=== PATIENT | male | born 1955 | race Caucasian/White ===

== ENCOUNTER 2016-04-12 01:29 | Inpatient (IN) | payer OTHER, MEDICARE ==
[~2016-04-12] VITALS: Ht 170.2 cm; Wt 128.5 kg
[~2016-04-12 01:29] MED LIST: BACT800T5 PO
[2016-04-12 01:40] VITALS: BP 125/74; PULSE 85; RESP 18; TEMP 97.7; O2SAT 98
[2016-04-12] MEDS ORDERED: NITROGLYCERIN 0.4 MG SL 25 TABS/BTL SL ONE (02:00)
[2016-04-12] MEDS ORDERED: ASPIRIN 81 MG CHEW TAB PO ONE (02:00)
[2016-04-12] MEDS ORDERED: SODIUM CHLORIDE 0.9% FLUSH 5 ML FLUSH IVF PRN ×4 (02:00→04:15)
[2016-04-12 02:04] LABS: AUTOMATED NEUTROPHIL # 5.6 TH/MM3 (1.8-7.7); BASOPHIL # 0.4 TH/MM3 (0-0.2); BASOPHIL % 3.9 % (0.0-2.0); EOSINOPHIL # 0.4 TH/MM3 (0-0.4); HEMATOCRIT 47.3 % (39.0-51.0); HEMO FLAGS DIFF FINAL; LYMPH % 23.9 % (9.0-44.0); LYMPHOCYTE # 2.2 TH/MM3 (1.0-4.8); MEAN CELL VOLUME 84.9 FL (80.0-100.0); MEAN CORPUSCULAR HEMOGLOBIN 28.4 PG (27.0-34.0); MEAN CORPUSCULAR HGB CONC 33.5 % (32.0-36.0); NEUT % 59.2 % (16.0-70.0); PLATELET COUNT 223 TH/MM3 (150-450); RED BLOOD COUNT 5.57 MIL/MM3 (4.50-5.90); RED CELL DISTRIBUTION WIDTH 12.6 % (11.6-17.2); WHITE BLOOD COUNT 9.4 TH/MM3 (4.0-11.0)
[2016-04-12 02:10] LABS: CHLORIDE 103 MEQ/L (98-107); POTASSIUM 4.3 MEQ/L (3.5-5.1); SODIUM (NA) 137 MEQ/L (136-145)
[2016-04-12 02:13] LABS: ANION GAP 9 MEQ/L (5-15); BICARBONATE 25.3 MEQ/L (21.0-32.0); BLOOD UREA NITROGEN 22 MG/DL (7-18); MAGNESIUM 2.1 MG/DL (1.5-2.5)
[2016-04-12 02:14] LABS: APTT (PATIENT) 24.7 SEC (24.3-30.1); PROTHROMBIN TIME - PATIENT 10.8 SEC (9.8-11.6)
[2016-04-12 02:16] LABS: GLOMERULAR FILTRATION RATE 69 ML/MIN (>89)
[2016-04-12 02:19] LABS: CREATINE KINASE 78 U/L (39-308)
--- NOTE | 2016-04-12 02:33 | PD ---
HPI Chief Complaint: Chest Pain Time Seen by Provider: 01:50 Travel History International Travel<30 days: No Contact w/Intl Traveler<30days: No Traveled to known affect area: No History of Present Illness HPI 61-year-old male presents to the emergency department for complaint of 45 minutes of the intra-sternal chest pain with shortness of breath. Pain is nonradiating. No neck jaw back shoulder arm or abdominal pain. Patient has chronically edematous lower extremity secondary to lymphedema left greater than right but also has history of DVT and PE in the past. Patient reports that he has a Sharath filter. Patient is on no blood thinning agents except an aspirin daily. Patient denies tobacco use. Patient states she's been having intermittent chest pain over the past 2 months. Patient states this episode occurred with minimal exertion while walking approximately 100 feet. Patient did not take aspirin prior to arrival to the emergency department. Patient did not take any nitroglycerin. Patient has history of hypertension and diabetes as well as lymphedema and DVT with previous PE. Patient does not complain of pleuritic pain. Symptoms are worsened by movement or taking a deep breath. Patient denies any recent febrile illness. No hemoptysis. Patient also reports that he thinks he had a stress test in [facility] proximally 2 months ago and thinks it may have been normal but does not know the details and has not been followed by a plastic welder. Patient reports his primary care provider Maria C romero but he does not know who the physician is at this location. Patient has multiple prescriptions that have been provided to him that he has not filled any of his prescriptions. [facility] Past Medical History Narrative Medical Diabetes hypertension DVT PE lymphedema cholecystectomy alcohol use Diabetes: Yes (NO MEDS) Patient Takes Glucophage: No Deep Vein Thrombosis: Yes Immunizations Current: Yes Past Surgical History Cholecystectomy: Yes Oral Surgery: Yes Social History Alcohol Use: Yes (VERY RARE) Tobacco Use: No Substance Use: No Allergies-Medications (Allergen,Severity, Reaction): Coded Allergies: No Known Allergies (Verified , 04/12/16) Reported Meds & Prescriptions Reported Meds & Active Scripts Active Narrative Medication has prescription but not filled, low dose aspirin Review of Systems Except as stated in HPI: all other systems reviewed are Neg General / Constitutional: No: Fever HENT: No: Congestion Cardiovascular: Positive: Chest Pain or Discomfort, No: Diaphoresis Respiratory: Positive: Shortness of Breath Gastrointestinal: No: Nausea, Vomiting, Abdominal Pain Genitourinary: No: Flank Pain Musculoskeletal: Positive: Edema, Pain Skin: No Rash Neurologic: No: Weakness Psychiatric: No: Anxiety Hematologic/Lymphatic: No: Lymph Node Enlargement Physical Exam Narrative GENERAL: Well-developed well-nourished obese male in no acute distress no respiratory distress. SKIN: Warm and dry. HEAD: Normocephalic. EYES: No scleral icterus. No injection or drainage. NECK: Supple, trachea midline. No JVD or lymphadenopathy. CARDIOVASCULAR: Regular rate and rhythm without murmurs, gallops, or rubs. RESPIRATORY: Breath sounds equal bilaterally. No accessory muscle use. GASTROINTESTINAL: Abdomen soft, non-tender, nondistended. MUSCULOSKELETAL: No cyanosis, bilateral lower extremity left greater than right lymphedema and 1+ pitting edema. BACK: Nontender without obvious deformity. No CVA tenderness. Data Data Last Documented VS Vital Signs Date Time Temp Pulse Resp B/P Pulse Ox O2 Delivery O2 Flow Rate FiO2 04/12/16 03:48 76 18 113/65 97 Room Air 04/12/16 01:40 97.7 Orders Electrocardiogram (04/12/16 01:50) Basic Metabolic Panel (Bmp) (04/12/16 01:50) Ckmb (Isoenzyme) Profile (04/12/16 01:50) Complete Blood Count With Diff (04/12/16 01:50) Magnesium (Mg) (04/12/16 01:50) Prothrombin Time / Inr (Pt) (04/12/16 01:50) Act Partial Throm Time (Ptt) (04/12/16 01:50) Troponin I (04/12/16 01:50) Chest, Single Ap (04/12/16 01:50) Ecg Monitoring (04/12/16 01:50) Bilateral Bp Monitoring (04/12/16 01:50) Iv Access Insert/Monitor (04/12/16 01:50) Oximetry (04/12/16 01:50) Oxygen Administration (04/12/16 01:50) Aspirin Chew (Aspirin Chew) (04/12/16 02:00) Sodium Chloride 0.9% Flush (Ns Flush) (04/12/16 02:00) Sodium Chloride 0.9% Flush (Ns Flush) (04/12/16 02:00) Nitroglycerin Sl (Nitrostat Sl) (04/12/16 02:00) Us Leg Venous Doppler Bilat (04/12/16 ) Nitroglycerin 2% Oint (Nitroglycerin 2% (04/12/16 03:45) D-Dimer (04/12/16 01:55) Admit Order (Ed Use Only) (04/12/16 ) ^ Saline Lock (04/12/16 04:03) Resp Oxygen Felice C Titrat 1-4 L (04/12/16 ) ^ Notify Dr: Other (04/12/16 04:03) Sodium Chloride 0.9% Flush (Ns Flush) (04/12/16 09:00) Sodium Chloride 0.9% Flush (Ns Flush) (04/12/16 04:15) Activity Bed Rest With Brp (04/12/16 04:03) Vital Signs (Adult) Q4H (04/12/16 04:03) Cardiac Rhythm .As Directed (04/12/16 04:03) ^ Notify Dr: Other .PRN (04/12/16 04:03) ^ Notify Dr. Parameters (04/12/16 04:03) Resp Oxygen Nasal Cannula (04/12/16 ) Ckmb (Isoenzyme) Profile (04/12/16 04:55) Ckmb (Isoenzyme) Profile (04/12/16 07:55) Troponin I (04/12/16 04:55) Troponin I (04/12/16 07:55) Electrocardiogram (04/12/16 04:55) Electrocardiogram (04/12/16 07:55) ^ Obtain (04/12/16 04:03) Sodium Chloride 0.9% Flush (Ns Flush) (04/12/16 04:15) Sodium Chloride 0.9% Flush (Ns Flush) (04/12/16 09:00) Apartment Groundskeeper / Telemetry [email or web address] (04/12/16 04:03) Labs Laboratory Tests Test 04/12/16 01:55 White Blood Count 9.4 TH/MM3 Red Blood Count 5.57 MIL/MM3 Hemoglobin 15.8 GM/DL Hematocrit 47.3 % Mean Corpuscular Volume 84.9 FL Mean Corpuscular Hemoglobin 28.4 PG Mean Corpuscular Hemoglobin 33.5 % Concent Red Cell Distribution Width 12.6 % Platelet Count 223 TH/MM3 Mean Platelet Volume 8.8 FL Neutrophils (%) (Auto) 59.2 % Lymphocytes (%) (Auto) 23.9 % Monocytes (%) (Auto) 9.0 % Eosinophils (%) (Auto) 4.0 % Basophils (%) (Auto) 3.9 % Neutrophils # (Auto) 5.6 TH/MM3 Lymphocytes # (Auto) 2.2 TH/MM3 Monocytes # (Auto) 0.8 TH/MM3 Eosinophils # (Auto) 0.4 TH/MM3 Basophils # (Auto) 0.4 TH/MM3 CBC Comment DIFF FINAL Differential Comment Prothrombin Time 10.8 SEC Prothromb Time International 1.0 RATIO Ratio Activated Partial 24.7 SEC Thromboplast Time D-Dimer Quantitative (PE/DVT) 0.34 MG/L FEU Sodium Level 137 MEQ/L Potassium Level 4.3 MEQ/L Chloride Level 103 MEQ/L Carbon Dioxide Level 25.3 MEQ/L Anion Gap 9 MEQ/L Blood Urea Nitrogen 22 MG/DL Creatinine 1.10 MG/DL Estimat Glomerular Filtration 69 ML/MIN Rate Random Glucose 259 MG/DL Calcium Level 8.6 MG/DL Magnesium Level 2.1 MG/DL Total Creatine Kinase 78 U/L Troponin I LESS THAN 0.02 NG/ML MDM Medical Decision Making Medical Screen Exam Complete: Yes Emergency Medical Condition: Yes Medical Record Reviewed: Yes Interpretation(s) CBC & BMP Diagram 04/12/16 01:55 troponin I: less than 0.02, not elevated EKG normal sinus rhythm without ST segment elevation ischemic changes or ectopy d-dimer: 0.34, not elevated; coags: wnl US BLE: negative for DVT, per radiologist Dr Joyner cxr: nad per reading radiologist Dr Joyner Differential Diagnosis Chest pain, ACS, atypical chest pain, PE, DVT, pleurisy, costochondritis, musculoskeletal pain Narrative Course 61-year-old male presents to the emergency department for complaint of 45 minutes of retrosternal chest pain associated with shortness of breath no sweats nausea vomiting referred neck jaw back shoulder arm pain. 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 Patient takes no blood thinning agents other than aspirin. Patient did not take aspirin prior to arrival to the emergency department and this was administered upon patient's arrival. Patient refuses sublingual nitroglycerin. Ultrasound of the lower extremities ordered to evaluate for DVT. Patient's had no recent febrile illness and no report of hemoptysis. Patient rates pain 7 /10 intensity but reports that prior to arrival to the emergency department pain was 10 over 10 in intensity. Patient also with history of similar symptoms on and off for the past 2 months. Patient states he has had a stress test but does not have a plastic welder. Patient states he thinks his tests test was done about 2 months ago and believes it was normal at [facility]. Medical records requested. At 4:30 AM patient reports he is chest pain-free no chest pain 0/10 in intensity discomfort; medical records have been received from [facility]. Consultation by Dr. Adiel Galeana identifies that although he does not have the patient stress test he has reviewed the studies from a pharmacologic nuclear stress test 03/02/16 which showed moderate to severe partially reversible inferior wall defect small partial reversible apical defect with an ejection fraction of 50% his recommendation was to have the patient undergo cardiac catheterization at that time 03/13/16 patient states he did not feel he was ready to undergo cardiac catheterization and he would like to research it and think on it further. Chemical stress test had been performed at [facility]. Patient apparently had left without a migraine to consent for cardiac catheterization from [facility] also prior to being discharged from the hospital at [facility] patient was also seen by for nasal 03/14/16 and at that time had finally agreed to undergo cardiac catheterization but ate lunch instead so that the procedure had to be canceled and the patient was discharged. Physician Communication Physician Communication discussed with Dr Martino for [facility] protocol,aware waiting for medical records from and d-dimer pending call placed to cardiology personal development educator Dr Jeronimo--- admit to [facility] for chest pain with abnormal nuclear stress test 03/02/17 no heparin discussed with Dr Martino ---will change to inpatient to [facility] to [facility] Diagnosis Primary Impression: Chest pain Qualified Code: R07.2 - Precordial pain Admitting Information Admitting Physician Requests: Admit Celina Maradiaga MD Apr 12, 2016 02:33
--- NOTE | 2016-04-12 03:10 | RADHPO ---
EXAM DATE/TIME: 04/12/2016 02:34 [facility] COMPARISON: US LEG RIGHT VENOUS DOPPLER, February 04, 2009, 17:09. US LEG LEFT VENOUS DOPPLER, January 29, 2016 , 2:01. INDICATIONS : Bilateral leg edema. MEDICAL HISTORY : Deep venous thrombosis. Diabetes. SURGICAL HISTORY : Cholecystectomy. ENCOUNTER: Subsequent ACUITY: 1 day PAIN SCORE: 0/10 LOCATION: Bilateral leg. TECHNIQUE: Venous ultrasound of the left and right leg was performed from the inguinal ligament to the proximal calf. Real-time, color Doppler and spectral tracing, compression and augmentation techniques were us ed. FINDINGS: RIGHT LEG: There is normal compressibility of the deep venous system from the inguinal region to the proximal ca lf. No echogenic clot is seen in the lumen of the common femoral, femoral, popliteal, and posterior tibial veins. There is a normal response of the venous system to proximal and distal augmentation an d respiration. LEFT LEG: There is normal compressibility of the deep venous system from the inguinal region to the proximal ca lf. No echogenic clot is seen in the lumen of the common femoral, femoral, popliteal, and posterior tibial veins. There is a normal response of the venous system to proximal and distal augmentation an d respiration. CONCLUSION: Normal examination. Douglas Joyner MD on April 12, 2016 at 3:08 Board Certified Radiologist. This report was verified electronically.
--- NOTE | 2016-04-12 03:19 | RADHPO ---
EXAM DATE/TIME: 04/12/2016 02:31 [facility] COMPARISON: No previous studies available for comparison. INDICATIONS : Chest tightness and shortness of breath. MEDICAL HISTORY : Deep venous thrombosis. Diabetes SURGICAL HISTORY : Cholecystectomy. ENCOUNTER: Initial ACUITY: 1 day PAIN SCORE: 7/10 LOCATION: Bilateral chest FINDINGS: A single view of the chest demonstrates the lungs to be symmetrically aerated without evidence of mas s, infiltrate or effusion. The cardiomediastinal contours are unremarkable. Osseous structures are intact. CONCLUSION: No acute disease. Douglas Joyner MD on April 12, 2016 at 3:18 Board Certified Radiologist. This report was verified electronically.
[2016-04-12] MEDS ORDERED: NITROGLYCERIN 2% OINT 1 GM PACKET TOPICAL ONE (03:45)
[2016-04-12 03:48] VITALS: BP 113/65; PULSE 76; RESP 18; O2SAT 97
[2016-04-12 04:28] VITALS: BP 118/69; PULSE 82; RESP 18; O2SAT 98
[2016-04-12] MEDS ORDERED: SODIUM CHLOR 0.9% 1000 ML INJ 1,000 ML IV SCH (05:09)
[2016-04-12] MEDS ORDERED: BISACODYL 10 MG SUPP PR PRN (05:15)
[2016-04-12] MEDS ORDERED: ONDANSETRON HCL 4 MG/2 ML VIAL IVP PRN (05:15)
[2016-04-12] MEDS ORDERED: SODIUM CHLORIDE 0.9% FLUSH 5 ML FLUSH FLUSH PRN (05:15)
[2016-04-12] MEDS ORDERED: MORPHINE SULFATE 4 MG/ML INJ IV PRN (05:15)
[2016-04-12] MEDS ORDERED: NITROGLYCERIN 2% OINT 1 GM PACKET TOPICAL PRN (05:15)
[2016-04-12] MEDS ORDERED: ACETAMINOPHEN 325 MG TAB PO PRN (05:15)
[2016-04-12] MEDS ORDERED: ACETAMINOPHEN/HYDROcodone 325 MG/5 MG TAB PO PRN (05:15)
[2016-04-12 05:35] LABS: CREATINE KINASE 63 U/L (39-308)
[2016-04-12 07:14] VITALS: BP 117/71; PULSE 83; RESP 18; TEMP 97.6; O2SAT 100
[2016-04-12 08:12] LABS: CREATINE KINASE 63 U/L (39-308)
[2016-04-12] MEDS ORDERED: SODIUM CHLORIDE 0.9% FLUSH 5 ML FLUSH FLUSH SCH (09:00)
[2016-04-12] MEDS ORDERED: SODIUM CHLORIDE 0.9% FLUSH 5 ML FLUSH IVF SCH ×2 (09:00)
--- NOTE | 2016-04-12 12:25 | EKG ---
Date Performed: 04/12/2016 Time Performed: 01:40:44 PTAGE: 61 years EKG: Sinus rhythm . Normal ECG NO PREVIOUS TRACING DOCTOR: Kenny Funk Interpretating Date/Time 04/12/2016 12:24:26
--- NOTE | 2016-04-12 13:16 | EKG ---
Date Performed: 04/12/2016 Time Performed: 05:09:28 PTAGE: 61 years EKG: Sinus rhythm . Incomplete LBBB Abnormal ECG Compared to prior tracing no significant change PREVIOUS TRACING : 04/12/2016 01.40 DOCTOR: Kenny Funk Interpretating Date/Time 04/12/2016 13:13:10
--- NOTE | 2016-04-12 13:16 | EKG ---
Date Performed: 04/12/2016 Time Performed: 07:43:46 PTAGE: 61 years EKG: Sinus rhythm Normal ECG Compared to prior tracing no significant change PREVIOUS TRACING : 04/12/2016 05.09 DOCTOR: Kenny Funk Interpretating Date/Time 04/12/2016 13:13:00
== END 2016-04-12 11:06 | disposition left against medical advice (07) | DRG 313 ==
LOC: PHED 01:29 → PHEDA 04:10 → OBSVTOIN 05:12
PROVIDERS: ADMIT Hospitalist; ATTEND Hospitalist
DX: R07.9 Chest pain, unspecified (principal); I10 Essential (primary) hypertension; E11.9 Type 2 diabetes mellitus without complications; I89.0 Lymphedema, not elsewhere classified; R07.2 Precordial pain; Z86.711 Personal history of pulmonary embolism; Z86.718 Personal history of other venous thrombosis and embolism; Z91.14 Patient's other noncompliance with medication regimen
CPT/HCPCS: 71010; 80048; 82550; 83735; 84484; 85025; 85379; 85610; 85730; 93005; 93970

== ENCOUNTER 2016-05-02 00:24 | Observation (INO) | payer MEDICARE, OTHER ==
[2016-05-02] VITALS (12 sets, daily range): BP systolic 104–148; BP diastolic 52–89; PULSE 69–92; RESP 15–21; TEMP 97.6–98.7; O2SAT 94–98
[~2016-05-02] VITALS: Ht 162.6 cm; Wt 124.5 kg
[2016-05-02] MEDS ORDERED: SODIUM CHLORIDE 0.9% FLUSH 5 ML FLUSH IVF PRN ×2 (01:30→04:30)
[2016-05-02] MEDS ORDERED: ASPIRIN 81 MG CHEW TAB PO ONE (01:30)
[2016-05-02] MEDS ORDERED: NITROGLYCERIN 2% OINT 1 GM PACKET TOP ONE (01:30)
--- NOTE | 2016-05-02 01:34 | PD ---
HPI . Chest pain Chief Complaint: Chest Pain Time Seen by Provider: 01:12 Travel History International Travel<30 days: No Contact w/Intl Traveler<30days: No History of Present Illness HPI Patient presents with chest pain that started about an hour ago. It is associated with diaphoresis. Patient states he's been having chest pain for several months now. It comes and goes. He states that he is trying to get established with [facility] so that he can have a cardiac catheterization. He states that he has not yet been able to establish a relationship with them. [facility] Past Medical History Diabetes: Yes (NO MEDS) Patient Takes Glucophage: No Deep Vein Thrombosis: Yes Immunizations Current: Yes Past Surgical History Cholecystectomy: Yes Oral Surgery: Yes Social History Alcohol Use: Yes (VERY RARE) Tobacco Use: No Substance Use: No Allergies-Medications (Allergen,Severity, Reaction): Coded Allergies: No Known Allergies (Verified , 05/02/16) Reported Meds & Prescriptions Reported Meds & Active Scripts Active No Active Prescriptions or Reported Medications Review of Systems General / Constitutional: Positive: Other (diaphoresis), No: Fever, Chills Cardiovascular: Positive: Chest Pain or Discomfort Musculoskeletal: Positive: Edema Skin: Positive Change in Pigmentation Physical Exam Narrative GENERAL: This is an obese man who looks very concerned. SKIN: Warm and dry. Lymphedema of both lower extremities, left greater than right. Erythema to the lateral aspect of the left lower extremity. It is warm to the touch. HEAD: Atraumatic. Normocephalic. EYES: Pupils equal and round. ENT: No nasal bleeding or discharge. Mucous membranes pink and moist. NECK: Trachea midline. Neck is supple. CARDIOVASCULAR: Regular rate and rhythm. Heart sounds are normal. RESPIRATORY: No accessory muscle use. Lungs are clear with full air movement throughout. GASTROINTESTINAL: Abdomen soft, non-tender, nondistended. MUSCULOSKELETAL: No obvious deformities. Positive peripheral edema, left leg worse than right leg.. NEUROLOGICAL: Awake and alert. No obvious cranial nerve deficits. Motor grossly within normal limits. Normal speech. PSYCHIATRIC: Appropriate mood and affect; insight and judgment normal. Data Data Last Documented VS Vital Signs Date Time Temp Pulse Resp B/P Pulse Ox O2 Delivery O2 Flow Rate FiO2 05/02/16 00:53 96 Room Air 05/02/16 00:28 98.0 92 15 148/89 Orders B-Type Natriuretic Peptide (05/02/16:18) Ckmb (Isoenzyme) Profile (05/02/16:18) Complete Blood Count With Diff (05/02/16:18) Comprehensive Metabolic Panel (05/02/16:18) Magnesium (Mg) (05/02/16:18) Prothrombin Time / Inr (Pt) (05/02/16:18) Act Partial Throm Time (Ptt) (05/02/16:18) Troponin I (05/02/16:18) Chest, Single Ap (05/02/16:18) Ecg Monitoring (05/02/16:18) Bilateral Bp Monitoring (05/02/16:18) Iv Access Insert/Monitor (05/02/16:18) Oximetry (05/02/16:18) Oxygen Administration (05/02/16:18) Aspirin Chew (Aspirin Chew) (05/02/16 01:30) Nitroglycerin 2% Oint (Nitroglycerin 2% (05/02/16 01:30) Sodium Chloride 0.9% Flush (Ns Flush) (05/02/16 01:30) Lactic Acid Sepsis Protocol (05/02/16:18) Blood Culture (05/02/16:18) Blood Glucose (05/02/16:18) CKMB (05/02/16 01:50) CKMB% (05/02/16 01:50) Admit Order (Ed Use Only) (05/02/16 04:22) Place In Observation (05/02/16 04:22) Activity Bed Rest With Brp (05/02/16 04:22) Vital Signs (Adult) Q4H (05/02/16 04:22) Cardiac Rhythm .As Directed (05/02/16 04:22) ^ Notify Dr: Other .PRN (05/02/16 04:22) ^ Notify Dr. Parameters (05/02/16 04:22) Resp Oxygen Nasal Cannula (05/02/16 ) Ckmb (Isoenzyme) Profile (05/02/16 05:00) Ckmb (Isoenzyme) Profile (05/02/16 08:00) Troponin I (05/02/16 05:00) Troponin I (05/02/16 08:00) Electrocardiogram (05/02/16 04:22) Electrocardiogram (05/02/16 07:22) ^ Obtain (05/02/16 04:22) Sodium Chloride 0.9% Flush (Ns Flush) (05/02/16 04:30) Sodium Chloride 0.9% Flush (Ns Flush) (05/02/16 09:00) Nitroglycerin 2% Oint (Nitroglycerin 2% (05/02/16 06:00) Export Administrator / Telemetry [email or web address] (05/02/16 04:22) Labs Laboratory Tests Test 05/02/16 05/02/16 01:50 03:49 Prothrombin Time 10.9 SEC Prothromb Time International 1.0 RATIO Ratio Activated Partial 24.4 SEC Thromboplast Time Sodium Level 134 MEQ/L Potassium Level 4.9 MEQ/L Chloride Level 102 MEQ/L Carbon Dioxide Level 23.8 MEQ/L Anion Gap 8 MEQ/L Blood Urea Nitrogen 19 MG/DL Creatinine 1.23 MG/DL Estimat Glomerular Filtration 60 ML/MIN Rate Random Glucose 388 MG/DL Lactic Acid Level 1.5 mmol/L Calcium Level 8.8 MG/DL Magnesium Level 2.0 MG/DL Total Bilirubin 0.4 MG/DL Aspartate Amino Transf 22 U/L (AST/SGOT) Alanine Aminotransferase 25 U/L (ALT/SGPT) Alkaline Phosphatase 95 U/L Total Creatine Kinase 157 U/L Creatine Kinase MB 0.9 NG/ML Troponin I LESS THAN 0.02 NG/ML B-Type Natriuretic Peptide 18 PG/ML Total Protein 7.0 GM/DL Albumin 3.3 GM/DL White Blood Count 9.7 TH/MM3 Red Blood Count 5.08 MIL/MM3 Hemoglobin 15.0 GM/DL Hematocrit 42.7 % Mean Corpuscular Volume 84.1 FL Mean Corpuscular Hemoglobin 29.5 PG Mean Corpuscular Hemoglobin 35.2 % Concent Red Cell Distribution Width 13.3 % Platelet Count 183 TH/MM3 Mean Platelet Volume 8.9 FL Neutrophils (%) (Auto) 60.9 % Lymphocytes (%) (Auto) 23.2 % Monocytes (%) (Auto) 10.1 % Eosinophils (%) (Auto) 4.5 % Basophils (%) (Auto) 1.3 % Neutrophils # (Auto) 5.9 TH/MM3 Lymphocytes # (Auto) 2.2 TH/MM3 Monocytes # (Auto) 1.0 TH/MM3 Eosinophils # (Auto) 0.4 TH/MM3 Basophils # (Auto) 0.1 TH/MM3 CBC Comment DIFF FINAL Differential Comment MDM Medical Decision Making Medical Screen Exam Complete: Yes Emergency Medical Condition: Yes Medical Record Reviewed: Yes (patient was seen in [place] on 04/02/16 with very similar symptoms. Arrangements were made for him to be admitted for further evaluation. However, he left AMA. The patient had an abnormal nuclear stress test on 03/02/17. Other medical issues include previous DVT/PE now status post filter. He has hypertension and diabetes. He has the lymphedema.) Interpretation(s) EKG shows a sinus rhythm with no acute ischemic change. EKG is unchanged from previous. Differential Diagnosis Differential diagnosis of chest pain includes but is not limited to musculoskeletal pain, pulmonary embolism, acute coronary syndrome, pneumonia, pleurisy Narrative Course Patient presents for evaluation of chest pain. I have initiated a chest pain workup. I have also ordered blood cultures and a lactic acid to further evaluate the left lower extremity erythema. CBC & BMP Diagram 05/02/16 01:50 05/02/16 03:49 Last Impressions Chest X-Ray 05/02/16 0118 Signed Impressions: Service Date/Time: Monday, May 02, 2016 01:52 - CONCLUSION: 1. No acute cardiopulmonary disease. Kenny Ferro MD Initial cardiac enzymes are negative. White count and lactic acid are normal. Patient has been sleeping comfortably without any complaints. He reports that he will stay in the hospital this time for further evaluation. He is being admitted to the chest pain center. Diagnosis Primary Impression: Chest pain Qualified Code: R07.9 - Chest pain, unspecified type Additional Impression: Lymphedema of left leg Admitting Information Admitting Physician Requests: Observation Scripts No Active Prescriptions or Reported Meds Condition: Stable Laverne Mireles MD May 02, 2016 01:34
--- NOTE | 2016-05-02 02:22 | RADRPT ---
EXAM DATE/TIME: 05/02/2016 01:52 [facility] COMPARISON: CHEST SINGLE AP, April 12, 2016, 2:31. INDICATIONS : Shortness of breath, tightness in chest. MEDICAL HISTORY : Deep venous thrombosis. Diabetes mellitus type II. SURGICAL HISTORY : Cholecystectomy. ENCOUNTER: Initial ACUITY: 1 day PAIN SCORE: 0/10 LOCATION: Bilateral chest FINDINGS: A single view of the chest demonstrates the lungs to be symmetrically aerated without evidence of mas s, infiltrate or effusion. The cardiomediastinal contours are unremarkable. Osseous structures are intact. CONCLUSION: 1. No acute cardiopulmonary disease. Kenny Ferro MD on May 02, 2016 at 2:20 Board Certified Radiologist. This report was verified electronically.
[2016-05-02 02:29] LABS: APTT (PATIENT) 24.4 SEC (24.3-30.1); PROTHROMBIN TIME - PATIENT 10.9 SEC (9.8-11.6)
[2016-05-02 02:54] LABS: ANION GAP 8 MEQ/L (5-15)
[2016-05-02 02:55] LABS: ALKALINE PHOSPHATASE 95 U/L (45-117); ALT (GPT) 25 U/L (12-78); AST (GOT) 22 U/L (15-37); BICARBONATE 23.8 MEQ/L (21.0-32.0); BLOOD UREA NITROGEN 19 MG/DL (7-18); CHLORIDE 102 MEQ/L (98-107); CREATINE KINASE 157 U/L (39-308); GLOMERULAR FILTRATION RATE 60 ML/MIN (>89); SODIUM (NA) 134 MEQ/L (136-145); TOTAL BILIRUBIN ADULT 0.4 MG/DL (0.2-1.0)
[2016-05-02 03:12] LABS: POTASSIUM 4.9 MEQ/L (3.5-5.1)
[2016-05-02 03:24] LABS: CKMB 0.9 NG/ML (0.5-3.6)
[2016-05-02 04:01] LABS: AUTOMATED NEUTROPHIL # 5.9 TH/MM3 (1.8-7.7); BASOPHIL # 0.1 TH/MM3 (0-0.2); BASOPHIL % 1.3 % (0.0-2.0); EOSINOPHIL # 0.4 TH/MM3 (0-0.4); EOSINOPHIL % 4.5 % (0.0-4.0); HEMATOCRIT 42.7 % (39.0-51.0); HEMO FLAGS DIFF FINAL; LYMPH % 23.2 % (9.0-44.0); LYMPHOCYTE # 2.2 TH/MM3 (1.0-4.8); MEAN CELL VOLUME 84.1 FL (80.0-100.0); MEAN CORPUSCULAR HEMOGLOBIN 29.5 PG (27.0-34.0); MEAN CORPUSCULAR HGB CONC 35.2 % (32.0-36.0); MONO % 10.1 % (0.0-8.0); NEUT % 60.9 % (16.0-70.0); PLATELET COUNT 183 TH/MM3 (150-450); RED BLOOD COUNT 5.08 MIL/MM3 (4.50-5.90); RED CELL DISTRIBUTION WIDTH 13.3 % (11.6-17.2); WHITE BLOOD COUNT 9.7 TH/MM3 (4.0-11.0)
[2016-05-02 06:12] LABS: CREATINE KINASE 72 U/L (39-308)
[2016-05-02] MEDS: NITROGLYCERIN 2% OINT 1 GM PACKET TOP SCH ×3 (06:18→17:46)
[2016-05-02] MEDS ORDERED: DEXTROSE 50% IN WATER 50 ML VIAL(D50) IV PRN (08:45)
[2016-05-02] MEDS ORDERED: GLUCAGON 1 MG/ML VIAL IM/SQ PRN (08:45)
[2016-05-02 08:50] LABS: CREATINE KINASE 62 U/L (39-308)
[2016-05-02] MEDS: SODIUM CHLORIDE 0.9% FLUSH 5 ML FLUSH IVF SCH ×2 (08:53→21:00)
[2016-05-02] MEDS: INSULIN ASPART SUPPLEMENTAL SCALE SQ SCH ×4 (09:20→22:53)
[2016-05-02] MEDS ORDERED: INSULIN ASPART SUPPLEMENTAL SCALE SQ SCH (11:00)
--- NOTE | 2016-05-02 13:27 | HHI.HP ---
[facility] Service [facility] Primary Care Physician No Primary Care Physician Admission Diagnosis chest pain Diagnoses: Chief Complaint: Chest pain Travel History International Travel<30 Days: No Contact w/Intl Traveler <30 Da: No Traveled to Known Affected Are: No History of Present Illness Patient is a 61-year-old male with history of hypertension, obesity, diabetes type 2, obesity, chronic lymphedema of the left lower extremity who presented to the emergency room complaining of chest pain. This is the third episode of chest pain he had for the past 3 months. 2 episodes in the past associated with road biking after 15-20 minutes associated with diaphoresis, chest tightness and he would stop biking and this would be relieved. He denies any orthopnea. However this time-third episode patient had just started biking when this chest pain occurred with diaphoresis and patient promptly came in here. EKG dpne shows no acute STTW changes On further history, 2-1/2 months ago was admitted to the [facility] and had a cardiac imaging study - scan was suggestive of blockage. Was seen by a soup mixer - Dr. Pabon and was offered a cardiac catheterization however patient refused. he wanted a second opinion with a more senior soup mixer. He was referred to [facility] and has yet to set up an OP appointment. He has history of diabetes type 2, left leg DVT, pulmonary embolism status post IVC filter in 2011. He just recently set up with a primary care physician and was started on medications which he hasn't had a chance to fill yet. Patient currently is on no medications at all. He was here 04/12 for chest pain and signed out AMA. Patient now is chest pain-free. EKG shows NSR no acute STTW changes Admitted for further evaluation and management Review of Systems Constitutional: COMPLAINS OF: Diaphoretic episodes Endocrine: DENIES: Heat/cold intolerance, Polydipsia, Polyuria, Polyphagia Eyes: DENIES: Blurred vision, Diplopia, Eye inflammation, Eye pain, Vision loss , Photosensitivity, Double Vision Ears, nose, mouth, throat: DENIES: Tinnitus, Hearing loss, Vertigo, Nasal discharge, Oral lesions, Throat pain, Hoarseness, Ear Pain, Running Nose, Epistaxis, Sinus Pain, Toothache, Odynophagia Respiratory: DENIES: Apneas, Cough, Snoring, Wheezing, Hemoptysis, Sputum production, Shortness of breath Cardiovascular: COMPLAINS OF: Chest pain, Dyspnea on Exertion, Lower Extremity Edema Gastrointestinal: DENIES: Abdominal pain, Black stools, Bloody stools, Constipation, Diarrhea, Nausea, Vomiting, Difficulty Swallowing, Anorexia Genitourinary: DENIES: Sexual dysfunction, Urinary frequency, Urinary incontinence, Urgency, Hematuria, Dysuria, Nocturia, Penile Discharge, Testicular Pain, Testicular Swelling Musculoskeletal: COMPLAINS OF: Back pain (occasional- no radiculopathy), DENIES: Joint pain, Muscle aches, Stiffness, Joint Swelling, Neck pain Integumentary: DENIES: Abnormal pigmentation, Nail changes, Pruritus, Rash Hematologic/lymphatic: DENIES: Bruising, Lymphadenopathy Immunologic/allergic: DENIES: Eczema, Urticaria Neurologic: DENIES: Abnormal gait, Headache, Localized weakness, Paresthesias, Seizures, Speech Problems, Tremor, Poor Balance Psychiatric: DENIES: Anxiety, Confusion, Mood changes, Depression, Hallucinations, Agitation, Suicidal Ideation, Homicidal Ideation, Delusions Past Family Social History Past Medical History History of diabetes type 2 History of lymphedema for 5 years Obesity History of left leg DVT, pulmonary embolism in 2012 status post IVC filter Past Surgical History Gallbladder surgery Reported Medications None states he misplaced prescriptions Allergies: Coded Allergies: No Known Allergies (Verified , 05/02/16) Family History Noncontributory Social History Denies smoking alcohol or substance abuse or IV drug use Physical Exam Vital Signs Vital Signs Date Time Temp Pulse Resp B/P Pulse Ox O2 Delivery O2 Flow Rate FiO2 05/02/16 11:57 98.0 82 19 104/65 96 05/02/16 10:21 74 18 104/52 99 Nasal Cannula 2 05/02/16 10:19 97.6 80 20 148/84 95 05/02/16 07:11 98.5 72 17 110/53 97 Nasal Cannula 2 05/02/16 07:11 Nasal Cannula 2 05/02/16 06:16 96 Nasal Cannula 2 05/02/16 04:49 98 Nasal Cannula 3.00 05/02/16 04:25 96 Room Air 05/02/16 04:25 69 18 107/56 97 Nasal Cannula 2 05/02/16 02:24 97 Nasal Cannula 2 05/02/16 00:53 96 Room Air 05/02/16 00:28 98.0 92 15 148/89 98 Room Air Physical Exam GENERAL: Obese in no apparent distress. SKIN: Lower extremity with some superficial wound with mild erythema HEAD: Atraumatic. Normocephalic. No temporal or scalp tenderness. EYES: Pupils equal round and reactive. Extraocular motions intact. No scleral icterus. No injection or drainage. ENT: Nose without bleeding. Airway patent. NECK: Trachea midline. No JVD or lymphadenopathy. Supple, nontender, no meningeal signs. CARDIOVASCULAR: Regular rate and rhythm without murmurs, gallops, or rubs. RESPIRATORY: Clear to auscultation. Breath sounds equal bilaterally. No wheezes , rales, or rhonchi. GASTROINTESTINAL: Abdomen soft, globular, non-tender, nondistended. . No guarding. MUSCULOSKELETAL: Extremities - left lower extremity with lymphedema, +2 peripheral pulses With superficial erythematous wound on the left foot. left big toe NEUROLOGICAL: Awake and alert. Cranial nerves II through XII intact. Motor and sensory grossly within normal limits. Five out of 5 muscle strength in all muscle groups. Normal speech. Laboratory Laboratory Tests Test 05/02/16 05/02/16 05/02/16 05/02/16 01:50 03:49 05:10 08:10 Prothrombin Time 10.9 Prothromb Time International 1.0 Ratio Activated Partial 24.4 Thromboplast Time Sodium Level 134 Potassium Level 4.9 Chloride Level 102 Carbon Dioxide Level 23.8 Anion Gap 8 Blood Urea Nitrogen 19 Creatinine 1.23 Estimat Glomerular Filtration 60 Rate Random Glucose 388 Lactic Acid Level 1.5 Calcium Level 8.8 Magnesium Level 2.0 Total Bilirubin 0.4 Aspartate Amino Transf 22 (AST/SGOT) Alanine Aminotransferase 25 (ALT/SGPT) Alkaline Phosphatase 95 Total Creatine Kinase 157 72 62 Creatine Kinase MB 0.9 Troponin I LESS THAN 0.02 LESS THAN 0.02 LESS THAN 0.02 B-Type Natriuretic Peptide 18 Total Protein 7.0 Albumin 3.3 White Blood Count 9.7 Red Blood Count 5.08 Hemoglobin 15.0 Hematocrit 42.7 Mean Corpuscular Volume 84.1 Mean Corpuscular Hemoglobin 29.5 Mean Corpuscular Hemoglobin 35.2 Concent Red Cell Distribution Width 13.3 Platelet Count 183 Mean Platelet Volume 8.9 Neutrophils (%) (Auto) 60.9 Lymphocytes (%) (Auto) 23.2 Monocytes (%) (Auto) 10.1 Eosinophils (%) (Auto) 4.5 Basophils (%) (Auto) 1.3 Neutrophils # (Auto) 5.9 Lymphocytes # (Auto) 2.2 Monocytes # (Auto) 1.0 Eosinophils # (Auto) 0.4 Basophils # (Auto) 0.1 CBC Comment DIFF FINAL Differential Comment Date/Time Procedure Status Source Growth 05/02/16 01:50 Aerobic Blood Culture Received Blood Peripheral Pending 05/02/16 01:50 Anaerobic Blood Culture Received Blood Peripheral Pending Result Diagram: 05/02/16 0349 05/02/16 0150 Imaging Last Impressions Chest X-Ray 05/02/16 0118 Signed Impressions: Service Date/Time: Monday, May 02, 2016 01:52 - CONCLUSION: 1. No acute cardiopulmonary disease. Kenny Ferro MD Assessment and Plan Assessment and Plan 61-year-old male presenting with CAD- Angina with positive myocardial perfusion study Twelve-lead EKG with no acute ST-T wave changes, normal sinus rhythm. Chest x-ray unremarkable Cardiology consulted Start patient on Lovenox 1 mg/kg subcutaneous every 12 hours Start patient on aspirin. Nitrol ointment Lopressor 12.5 mg by mouth every 8 Start statins. Get lipid panel History of left leg DVT, pulmonary embolism, status post IVC filter in 2011 By history -he completed 6 months of Coumadin therapy. Last doppler US 04/12 negative for DVT History of chronic left leg lymphedema. With some superficial open/scaly wounds cortisporin ointment q 8 to wounds get a wound care team consult patient needs to ff up with a Lymphedema clinic- per patient cost is an issue - History of diabetes type 2. Get hemoglobin A1C Check sliding scales insulins with Regular Insulin coverage dietitian counselling- desk sergeant consult Obesity patient very motivated with weight loss Brandon Pascual MD May 02, 2016 13:27
[2016-05-02] MEDS: METOPROLOL TARTRATE 25 MG TAB PO SCH ×2 (14:00→22:54)
[2016-05-02] MEDS: SODIUM CHLOR 0.9% 1000 ML INJ 1,000 ML IV SCH (14:15)
--- NOTE | 2016-05-02 16:30 | EKG ---
Date Performed: 05/02/2016 Time Performed: 08:36:31 PTAGE: 61 years EKG: Sinus rhythm INCOMPLETE RIGHT BUNDLE BRANCH BLOCK Compared to prior tracing no significant change BORDERLINE ECG PREVIOUS TRACING : 05/02/2016 05.05 DOCTOR: Jovany Spivey Interpretating Date/Time 05/04/2016 08:54:42
--- NOTE | 2016-05-02 16:30 | EKG ---
Date Performed: 05/02/2016 Time Performed: 00:42:25 PTAGE: 61 years EKG: Sinus rhythm LOW QRS VOLTAGE IN PRECORDIAL LEADS INCOMPLETE RIGHT BUNDLE BRANCH BLOCK Compared to previous tracin g, QRS volatge is lower in the precordial leads, otherwise no significant change BORDERLINE ECG PREVIOUS TRACING : 04/12/2016 07.43 DOCTOR: Jovany Spivey Interpretating Date/Time 05/04/2016 09:22:49
--- NOTE | 2016-05-02 16:30 | EKG ---
Date Performed: 05/02/2016 Time Performed: 05:05:04 PTAGE: 61 years EKG: Sinus rhythm INCOMPLETE RIGHT BUNDLE BRANCH BLOCK Compared to previous tracing, QRS voltage has improved in the p recordial leads BORDERLINE ECG NO PREVIOUS TRACING DOCTOR: Jovany Spivey Interpretating Date/Time 05/04/2016 08:54:34
--- NOTE | 2016-05-02 16:45 | MB ---
cc: PATRICIA IBARRA,SOLEDAD Sanders DO DATE OF CONSULTATION 05/02/16 REASON FOR CONSULTATION Angina. HISTORY OF PRESENT ILLNESS Mr. Hurtado is a 71-year-old gentleman with morbid obesity, history of hyperlipidemia. Apparently, the patient is taking no medications. He referred he was seen previously in the ER last month. Also he has a nuclear stress test that was done at [facility] in February that was positive. Apparently, the last office visit the gentleman left AMA. He was readmitted due the chest pain. ALLERGIES None. SOCIAL HISTORY The gentleman denies smoking and drinking. FAMILY HISTORY Noncontributory to his current medical condition. MEDICATIONS Currently 1. Aspirin. 2. Lipitor 20 mg a day. 3. Lovenox subcu at 150 q 12 hours. 4. Insulin. 5. Metoprolol. 6. Nitroglycerin. REVIEW OF SYSTEMS Currently he referred chest pain only on activity but no shortness of breath. No fever. PHYSICAL EXAMINATION GENERAL: Alert, fully oriented. VITAL SIGNS: Blood pressure 109/65, pulse 81, respiratory rate 18 LUNGS: Ventilated CARDIOVASCULAR: S1-S2, no gallop. No murmur. ABDOMEN: Obese. No mass. No bruit. EXTREMITIES: No edema. CARDIOLOGY STUDIES Previous electrocardiogram shows sinus rhythm, in V1. No acute ST and T-wave changes. LABORATORY DATA Hemoglobin is 15, white blood cell 9.7, potassium is 4.9, creatinine 1.23, troponin less than 0.02. ASSESSMENT AND RECOMMENDATIONS Mr. Hurtado referred he is active. He uses his bicycle, some days around ____ miles. He began to have chest tightness when riding his bicycle right now for the past couple of weeks. He has apparently moderate irreversible defect and a nuclear that was done at [facility] in February. At this point, my recommendation is continue with current management. Case extensively discussed with him. Diet and exercise discussed also with him. The gentleman will need to have a left heart catheterization. I will consult Dr. Galeana. Possible cardiac catheterization on Wednesday morning, but if the patient develops chest pain during hospitalization then cardiac cath can be done during this weekend. Patricia Ibarra MD HS/SA /3:55 PM /4:40 PM
[2016-05-02] MEDS: NEOMYCIN/POLYMYXIN/BACITRACIN/HC OINT 15 GM TUBE TOP SCH ×2 (16:57→22:54)
[2016-05-02] MEDS: ENOXAPARIN SODIUM 150 MG/ML SYRINGE SQ SCH (16:57)
[2016-05-02] MEDS: ATORVASTATIN 20 MG TAB PO SCH (22:53)
[2016-05-03] VITALS (13 sets, daily range): BP systolic 115–142; BP diastolic 68–88; PULSE 52–104; RESP 18–21; TEMP 97.2–98.1; O2SAT 96–99
[2016-05-03] MEDS: NITROGLYCERIN 2% OINT 1 GM PACKET TOP SCH ×4 (00:26→17:58)
[2016-05-03] MEDS: ENOXAPARIN SODIUM 150 MG/ML SYRINGE SQ SCH ×2 (04:29→14:28)
[2016-05-03] MEDS: ACETAMINOPHEN/HYDROcodone 325 MG/5 MG TAB PO PRN ×3 (04:52→20:23)
[2016-05-03] MEDS: NEOMYCIN/POLYMYXIN/BACITRACIN/HC OINT 15 GM TUBE TOP SCH (05:01)
[2016-05-03] MEDS: METOPROLOL TARTRATE 25 MG TAB PO SCH ×3 (05:04→20:25)
[2016-05-03] MEDS: INSULIN ASPART SUPPLEMENTAL SCALE SQ SCH ×4 (07:02→20:24)
[2016-05-03] MEDS ORDERED: INSULIN HUMAN NPH/R 70/30 1,000 UNITS/10 ML VIAL SQ SCH (08:00)
[2016-05-03] MEDS: ASPIRIN EC 81 MG TABEC PO SCH (09:00)
--- NOTE | 2016-05-03 13:02 | HHI.PR ---
Subjective Remarks no complains of chest pain now complains of back pain- no radiculopathy, ambulating well Objective Vitals Vital Signs Date Time Temp Pulse Resp B/P Pulse Ox O2 Delivery O2 Flow Rate FiO2 05/03/16 10:31 97.2 52 18 130/78 96 05/03/16 04:13 98.0 78 21 115/68 99 05/02/16 23:46 97.8 71 21 117/76 98 05/02/16 23:35 73 05/02/16 20:17 98.7 72 18 121/68 97 05/02/16 20:00 97 05/02/16 15:33 98.1 81 18 109/65 94 I/O 05/02/16 05/02/16 05/02/16 05/03/16 05/03/16 05/03/16 07:00 15:00 23:00 07:00 15:00 23:00 Intake Total 1200 ml Output Total 800 ml 1200 ml 1000 ml Balance -800 ml 0 ml -1000 ml Intake Oral 1200 ml Output Urine Total 800 ml 1200 ml 1000 ml # Voids 4 # Bowel Movements 1 Result Diagram: 05/02/16 0349 05/02/16 0150 Imaging Last Impressions Chest X-Ray 05/02/16 0118 Signed Impressions: Service Date/Time: Monday, May 02, 2016 01:52 - CONCLUSION: 1. No acute cardiopulmonary disease. Kenny Ferro MD Objective Remarks awake and alert, oriented x 3 anicteric lungs clear regular rhythm abdomen soft, nontender extremities - chronic left leg edema foot- dry wounds, mild erythema A/P Assessment and Plan 61-year-old male presenting with CAD- Angina with positive myocardial perfusion study Twelve-lead EKG with no acute ST-T wave changes, normal sinus rhythm. Chest x-ray unremarkable. troponins negative Cardiology consulted Lovenox 1 mg/kg subcutaneous every 12 hours aspirin. Nitrol ointment Lopressor 12.5 mg by mouth every 8 Start statins. Get lipid panel- pending History of left leg DVT, pulmonary embolism, status post IVC filter in 2011 By history -he completed 6 months of Coumadin therapy. Last doppler US 04/12 negative for DVT History of chronic left leg lymphedema. left foot superficial wounds with mild cellulitis Mycolog cream bid.. Keflex 500 mg po q8 get a wound care team consult in am patient needs to ff up with a Lymphedema clinic- per patient cost is an issue - instruct patient to d/w PCP for OP referral Low back pain- chronic- no radiculopathy prn pain meds History of diabetes type 2. Get hemoglobin A1C Check sliding scales insulins with Regular Insulin coverage. 70/30 bid dietitian counselling- replenishment merchandising associate consult Obesity patient very motivated with weight loss d/w patient- needs blood work- now agrees to blood work fasting Brandon Pascual MD May 03, 2016 13:02
[2016-05-03] MEDS: CEPHALEXIN MONOHYDRATE 500 MG CAP PO SCH ×2 (14:00→20:23)
[2016-05-03] MEDS: NYSTATIN/TRIAMCINOLONE CREAM 15 GM TOPICAL SCH ×2 (14:00→20:22)
[2016-05-03] MEDS: SODIUM CHLOR 0.9% 1000 ML INJ 1,000 ML IV SCH (14:04)
[2016-05-03] MEDS: INSULIN HUMAN NPH/R 70/30 1,000 UNITS/10 ML VIAL SQ SCH (17:55)
[2016-05-03] MEDS: SODIUM CHLORIDE 0.9% FLUSH 5 ML FLUSH IVF SCH (20:22)
[2016-05-03] MEDS: ATORVASTATIN 20 MG TAB PO SCH (20:23)
[2016-05-04] VITALS (27 sets, daily range): BP systolic 102–137; BP diastolic 48–81; PULSE 64–80; RESP 18–22; TEMP 97.1–98.7; O2SAT 92–99
[2016-05-04] MEDS: ZOLPIDEM TARTRATE 5 MG TAB PO PRN (00:03)
[2016-05-04] MEDS: NITROGLYCERIN 2% OINT 1 GM PACKET TOP SCH ×6 (00:04→23:07)
[2016-05-04] MEDS: ENOXAPARIN SODIUM 150 MG/ML SYRINGE SQ SCH ×2 (00:19→15:48)
[2016-05-04] MEDS: ACETAMINOPHEN/HYDROcodone 325 MG/5 MG TAB PO PRN (00:19)
[2016-05-04] MEDS: METOPROLOL TARTRATE 25 MG TAB PO SCH ×4 (06:00→20:30)
[2016-05-04] MEDS: INSULIN ASPART SUPPLEMENTAL SCALE SQ SCH ×4 (06:06→20:41)
[2016-05-04] MEDS: CEPHALEXIN MONOHYDRATE 500 MG CAP PO SCH ×3 (06:06→20:30)
--- NOTE | 2016-05-04 07:40 | HHI.PR ---
Subjective Remarks patient insisted that he wants the perioperative manager from [id number] that he was set up to see as OP to see him , has not established with them discussed with him that Account Development Associate termite control representative is from the heart group and whoever is termite control representative gets to see him as he does not have a regular perioperative manager set up with in their group states he will find out the name of the MD and let us know and wanted the specific MD no complains of pain or shortness of breath no leg pain, swelling and erythema improved Objective Vitals Vital Signs Date Time Temp Pulse Resp B/P Pulse Ox O2 Delivery O2 Flow Rate FiO2 05/04/16 07:17 75 05/04/16 06:00 76 05/04/16 05:00 67 05/04/16 04:00 69 05/04/16 03:00 71 05/04/16 03:00 98.2 72 18 102/49 92 05/04/16 02:00 68 05/04/16 01:06 72 05/04/16 00:29 66 05/03/16 23:00 98.0 63 21 142/73 98 05/03/16 23:00 66 05/03/16 22:00 64 05/03/16 21:00 68 05/03/16 20:00 66 05/03/16 19:00 66 05/03/16 19:00 98.1 68 20 123/81 98 05/03/16 18:05 69 05/03/16 17:32 76 05/03/16 16:16 66 05/03/16 16:16 98.1 66 20 124/88 96 05/03/16 15:33 61 05/03/16 14:00 104 05/03/16 12:00 98.0 100 18 134/72 97 05/03/16 11:30 18 05/03/16 10:31 97.2 52 18 130/78 96 I/O 05/03/16 05/03/16 05/03/16 05/04/16 05/04/16 05/04/16 07:00 15:00 23:00 07:00 15:00 23:00 Intake Total 600 ml 473 ml Output Total 1000 ml 200 ml 375 ml Balance -1000 ml 400 ml 98 ml Intake Oral 600 ml 473 ml Output Urine Total 1000 ml 200 ml 375 ml # Bowel Movements 1 0 Result Diagram: 05/02/16 0349 05/02/16 0150 Imaging Last Impressions Chest X-Ray 05/02/16 0118 Signed Impressions: Service Date/Time: Monday, May 02, 2016 01:52 - CONCLUSION: 1. No acute cardiopulmonary disease. Kenny Ferro MD Objective Remarks awake and alert, oriented x 3 anicteric lungs clear regular rhythm abdomen soft, nontender extremities - chronic left leg edema foot- dry wounds, mild erythema A/P Assessment and Plan 61-year-old male presenting with CAD- Angina with positive myocardial perfusion study Twelve-lead EKG with no acute ST-T wave changes, normal sinus rhythm. Chest x-ray unremarkable. troponins negative seen by Cardiology- plan for [facility] Lovenox sq q 12 aspirin. Nitrol ointment Lopressor 12.5 mg by mouth every 8 statins. lipid panel- pending History of left leg DVT, pulmonary embolism, status post IVC filter in 2011 By history -he completed 6 months of Coumadin therapy. Last doppler US 04/12 negative for DVT History of chronic left leg lymphedema. Left foot superficial wounds- chronic with mild cellulitis leg elevation Mycolog cream bid.. Keflex 500 mg po q8 get a wound care team consult patient needs to ff up with a Lymphedema clinic- per patient cost is an issue - instruct patient to d/w PCP for OP referral Low back pain- chronic- no radiculopathy prn pain meds History of diabetes type 2. Get hemoglobin A1C Check sliding scales insulins with Regular Insulin coverage. 70/30 bid dietitian counselling- second chef consult Obesity patient very motivated with weight loss ADD d/w Dr. Galeana was in other hospital and signed out refused cath at Brandon Johansen MD May 04, 2016 07:40
[2016-05-04 08:06] LABS: ANION GAP 7 MEQ/L (5-15); BICARBONATE 26.7 MEQ/L (21.0-32.0); BLOOD UREA NITROGEN 15 MG/DL (7-18); CHLORIDE 105 MEQ/L (98-107); GLOMERULAR FILTRATION RATE 77 ML/MIN (>89); HDL CHOLESTEROL 29.2 MG/DL (40.0-60.0); LDL CHOLESTEROL 83 MG/DL (0-99); POTASSIUM 4.1 MEQ/L (3.5-5.1); SODIUM (NA) 139 MEQ/L (136-145)
[2016-05-04 08:09] LABS: INDIRECT BILIRUBIN 0.4 MG/DL (0.0-0.8); TOTAL BILIRUBIN ADULT 0.5 MG/DL (0.2-1.0)
[2016-05-04] MEDS: ASPIRIN EC 81 MG TABEC PO SCH (10:13)
[2016-05-04] MEDS: INSULIN HUMAN NPH/R 70/30 1,000 UNITS/10 ML VIAL SQ SCH ×2 (10:13→17:11)
[2016-05-04] MEDS: NYSTATIN/TRIAMCINOLONE CREAM 15 GM TOPICAL SCH ×2 (10:15→20:41)
[2016-05-04] MEDS: SODIUM CHLORIDE 0.9% FLUSH 5 ML FLUSH IVF SCH ×2 (10:15→20:32)
[2016-05-04] MEDS: SODIUM CHLOR 0.9% 1000 ML INJ 1,000 ML IV SCH (13:53)
[2016-05-04 16:40] LABS: HEMOGLOBIN A1b 1.2 %; HEMOGLOBIN Ao 76.9 %; HEMOGLOBIN F 1.6 %; HEMOGLOBIN LA1C 2.4 %; HEMOGLOBIN P3 4.6 %
[2016-05-04] MEDS: ATORVASTATIN 20 MG TAB PO SCH (20:30)
[2016-05-05] VITALS (17 sets, daily range): BP systolic 96–124; BP diastolic 48–74; PULSE 65–87; RESP 18–19; TEMP 98.1–98.7; O2SAT 96–98
[2016-05-05] MEDS: ZOLPIDEM TARTRATE 5 MG TAB PO PRN (00:59)
[2016-05-05] MEDS: NITROGLYCERIN 2% OINT 1 GM PACKET TOP SCH ×2 (05:55→13:02)
[2016-05-05] MEDS: CEPHALEXIN MONOHYDRATE 500 MG CAP PO SCH (05:55)
[2016-05-05] MEDS: INSULIN ASPART SUPPLEMENTAL SCALE SQ SCH ×2 (05:55→13:01)
[2016-05-05] MEDS: METOPROLOL TARTRATE 25 MG TAB PO SCH (05:55)
--- NOTE | 2016-05-05 07:53 | MB ---
cc: ADIEL FRITZ DO DATE OF CONSULTATION May 04, 2016 REASON FOR CONSULTATION Chest pain. HISTORY OF PRESENT ILLNESS Leland Hurtado is a 61-year-old male who presented to [facility] on May 02, 2016 due chest pain. He states that he gets chest pain while riding his bike. He normally rides for 15-20 minutes and then gets chest pain and diaphoresis. He stopped biking and it would be relieved. He denies any other symptoms with this. Currently seeing him, he has no longer having chest pain. He denies shortness of breath, palpitations, syncopal episodes or presyncopal episodes. Of note, the patient has been in multiple hospitals recently. He was originally in [facility] in [place] on March 02, 2016, and underwent a stress test which showed a partially reversible inferior wall and apical defect. At that time he was recommended cardiac catheterization but he decided that he would leave against medical advice and come to [facility] for a second opinion on March 12, 2016. He was seen by Dr. Sands who recommended cardiac catheterization. I was then consulted to discuss with the patient the consideration of cardiac catheterization. My recommendation at that time was cardiac catheterization due to chest pain with abnormal stress test. At that time he said that he was not ready to undergo cardiac catheterization and would like to further research it. He asked if Dr. Christiansen, my senior it architect could do it, and I explained that Dr. Christiansen no longer does interventions. He also states that he left [facility] because he had to sign consent for the cardiac catheterization which was extensive. I explained that he would need to sign consent at that time at [facility] for him to undergo the cardiac catheterization and I even offered to go over every part of it with him but he felt he was not ready to sign consent. He then stayed in the hospital and left AMA. He was to follow up with Dr. Jeronimo in the outpatient setting by missed two appointments. Then on April 12, 2016, he presented to [facility] with chest pain. At that time he was recommended to be admitted. He decided at that time that he would leave against medical advice again. Since that time he was scheduled April [address] our office with [address] Whaley and did not show up. PAST MEDICAL HISTORY 1. Diabetes mellitus type 2. 2. Lymphedema. 3. History of left lower extremity DVT and pulmonary embolus (2011). 4. Obesity. PAST SURGICAL HISTORY 1. Gallbladder surgery. 2. Placement of an IVC filter (2011). ALLERGIES No known drug allergies. MEDICATIONS Previously was on medications when I saw him at [facility] but now he states that he has misplaced his prescriptions. FAMILY HISTORY Father at the age of 67 due to complications of coronary artery disease. Mother had brain cancer. SOCIAL HISTORY The patient denies tobacco, alcohol or drug abuse. REVIEW OF SYSTEMS Fourteen systems were reviewed including osteopathic pertinent positives and negatives above, otherwise negative. PHYSICAL EXAMINATION VITAL SIGNS: Temperature 98.2, heart rate 69, blood pressure 119/75, respirations 18, pulse ox 95% on room air. IN GENERAL: The patient appears well, in no acute distress. Alert, awake and oriented x 3. Extraocular muscles intact. Mucous membranes moist. NECK: Supple. No JVD at 45 degrees. No carotid bruits heard bilaterally. Carotid upstroke is brisk in nature. HEART: Regular rate and rhythm. Positive first and second heart sounds with a 1/6 holosystolic murmur noted at the apex. LUNGS: Clear to auscultation bilaterally. No wheezes, rales or rhonchi. ABDOMEN: Obese, nontender, nondistended. EXTREMITIES: Have bilateral edema with chronic venous stasis. NEUROLOGIC: No focal deficits. SKIN: Warm, dry and intact. OSTEOPATHIC EXAM: Mild lordosis. No kyphoscoliosis. No paraspinal tender points. LABORATORY WORK Hemoglobin 15.0, hematocrit 42.7, platelets 183. Potassium 4.1, BUN 15, creatinine 0.99. Hemoglobin A1c 11.8. Troponin less than 0.02. Triglycerides 190, total cholesterol 150, LDL 83, HDL 29.2. ELECTROCARDIOGRAM (May 02, 2016 at 0836) Normal sinus rhythm, incomplete right bundle branch block, compared to prior tracing from May 02, 2016 at 05:05, no significant change. IMPRESSIONS 1. Chest pain, possible stable angina. 2. History of abnormal stress test showing a partially reversible inferior wall and apical defect (March 02, 2016 at [facility]). 3. History of left leg DVT and pulmonary embolism status post IVC filter (2011). 4. Chronic left leg lymphedema. 5. History of type 2 diabetes. 6. Obesity. 7. Uncontrolled diabetes mellitus 8. Noncompliance with leaving multiple hospitals against medical advice and not showing up for office appointments, and although he has been booked for at least three office visits, states that he is "unable to get an appointment in our office." RECOMMENDATIONS 1. I spoke to Leland and let him know that my recommendation was once again cardiac catheterization. He states that he does not want to undergo cardiac catheterization by me but by Dr. Whaley. 2. I explained the Dr. Whaley was not available at this time but Leland says that he will only undergo cardiac catheterization by Dr. Whaley. I did speak to Dr. Whaley and he will be out of town and not available for cardiac catheterization until at the earliest Wednesday morning. He was okay with placing him on the cardiac catheterization schedule as an outpatient. I discussed this with Mr. Hurtado and let him know that Dr. Whaley was not available until at the earliest Wednesday. 3. Mr. Hurtado states that he would like to stay in the hospital until that time. I feel that this is inappropriate at this time. As he is refusing cardiac catheterization, we will continue with medical management until he can have an outpatient cardiac catheterization or office visit by the insurance account assistant of his preference. 4. He appears to have stable angina as he has had two to three episodes over the past three months which comes from riding his bike 15-20 minutes. Until the cardiac catheterization, he should not do anything exertional. 5. I explained to him the risks and benefits of medical therapy and he understands. 6. I also recommended that he go back on his medication, specifically aspirin 81 mg as he has appeared to have stopped all his medications. Thank you for allowing me to see Leland Hurtado. If there are any questions, please do not hesitate to call. Adiel Fritz DO VGP/SSB /5:56 PM /7:34 AM HEAV[facility]
[2016-05-05] MEDS: INSULIN HUMAN NPH/R 70/30 1,000 UNITS/10 ML VIAL SQ SCH (08:58)
[2016-05-05] MEDS: ASPIRIN EC 81 MG TABEC PO SCH (08:59)
[2016-05-05] MEDS: NYSTATIN/TRIAMCINOLONE CREAM 15 GM TOPICAL SCH (09:00)
[2016-05-05] MEDS: SODIUM CHLORIDE 0.9% FLUSH 5 ML FLUSH IVF SCH (09:00)
--- NOTE | 2016-05-05 12:41 | HHI.PR ---
Subjective Remarks patient seen with staff nurse and case monitor denies any chest pain or shortness of breath he refused cardiac cath by Dr. Galeana I explained to him that if he had consented earlier for the cath- we would have know explained to him that his blood work- troponins, negative, EKG no acute changed expressing manipulative behavior and statements Cardiology has cleared him and cath can be done as OP Objective Vitals Vital Signs Date Time Temp Pulse Resp B/P Pulse Ox O2 Delivery O2 Flow Rate FiO2 05/05/16 12:25 98.1 87 18 124/74 96 05/05/16 11:14 70 05/05/16 10:00 70 05/05/16 09:00 72 05/05/16 08:45 98.7 71 18 96/48 96 05/05/16 08:00 76 05/05/16 07:25 75 05/05/16 06:00 68 05/05/16 05:00 65 05/05/16 04:00 67 05/05/16 03:00 65 05/05/16 03:00 98.1 67 19 106/74 98 05/05/16 02:00 66 05/05/16 01:08 72 05/05/16 00:00 72 05/04/16 23:00 64 05/04/16 23:00 97.4 67 22 137/81 99 05/04/16 22:00 65 05/04/16 21:00 64 05/04/16 20:00 68 05/04/16 19:00 74 05/04/16 19:00 98.5 72 20 124/76 98 05/04/16 18:23 69 05/04/16 17:16 80 05/04/16 16:21 74 05/04/16 15:21 98.7 74 18 128/68 96 05/04/16 15:11 65 05/04/16 14:00 70 05/04/16 13:00 78 05/04/16 12:35 97.1 74 18 104/48 98 I/O 05/04/16 05/04/16 05/04/16 05/05/16 05/05/16 05/05/16 07:00 15:00 23:00 07:00 15:00 23:00 Intake Total 473 ml 840 ml 480 ml Output Total 375 ml Balance 98 ml 840 ml 480 ml Intake Oral 473 ml 840 ml 480 ml Output Urine Total 375 ml # Voids 3 3 # Bowel Movements 0 1 0 Result Diagram: 05/02/16 0349 05/04/16 0708 Imaging Last Impressions Chest X-Ray 05/02/16 0118 Signed Impressions: Service Date/Time: Monday, May 02, 2016 01:52 - CONCLUSION: 1. No acute cardiopulmonary disease. Kenny Ferro MD Objective Remarks awake and alert, oriented x 3 anicteric lungs clear regular rhythm abdomen soft, nontender extremities - chronic left leg edema- swelling improved foot- dry wounds, erythema improved A/P Assessment and Plan 61-year-old male presenting with CAD- Stable Angina with positive myocardial perfusion study Twelve-lead EKG with no acute ST-T wave changes, normal sinus rhythm. Chest x-ray unremarkable. troponins negative seen by Cardiology- plan for [facility]- patient refused Dr. Galeana. insisisting on Dr. Whaley aspirin. Nitrol ointment 1 in q 6 Lopressor 12.5 mg by mouth every 8 statins. lipid panel good History of left leg DVT, pulmonary embolism, status post IVC filter in 2011 By history -he completed 6 months of Coumadin therapy. Last doppler US 04/12 negative for DVT History of chronic left leg lymphedema. Left foot superficial wounds- chronic with mild cellulitis- erythema much improved leg elevation Mycolog cream bid.. Keflex 500 mg po q8 instructed to ff up Lymphedema clinic- per patient cost is an issue- instruct patient to d/w PCP for OP referral Low back pain- chronic- no radiculopathy prn pain meds History of diabetes type 2. A1C 11.2 Check sliding scales insulins with Regular Insulin coverage. just started 70 /30 bid 15 units - increase to 18 units blood sugar low 200s diet counselling Obesity patient very motivated with weight loss Lovenox - DVT prophylaxis DC today FF up with his PCP Ff up with [facility] - call for appt in am d/w CM- patient has [employer] d/w wound care team nurse DC today with OP ff up with PCP and ff up with Cardiology- gave office # to set up with went back to patient's room with staff nurse to go over prescriptions- patient not in the room- left without prescriptions and discharge instructions instruct nurse to document 05/04 d/w Dr. Galeana was in other hospital and signed out refused cath at Brandon Johansen MD May 05, 2016 12:41
[2016-05-05] MEDS: SODIUM CHLOR 0.9% 1000 ML INJ 1,000 ML IV SCH (13:42)
[2016-05-05] MEDS ORDERED: NITR2OIN TOP (15:17)
[2016-05-05] MEDS ORDERED: CEPH500C PO (15:17)
[2016-05-05] MEDS ORDERED: METO25TA3 PO (15:17)
[2016-05-05] MEDS ORDERED: LIPI20TA PO (15:17)
[2016-05-05] MEDS ORDERED: ASPI81TA11 PO (15:17)
[2016-05-05] MEDS ORDERED: NOVO7030P2 SQ (15:18)
--- NOTE | 2016-05-05 15:56 | HHI.DS ---
Discharge Summary Admission Date May 02, 2016 at 04:25 Discharge Date: May 05, 2016 Admitting Diagnosis chest pain (1) Chest pain ICD Code: R07.9 Diagnosis: Principal (2) Cellulitis of leg, left ICD Code: L03.116 Diagnosis: Principal Procedures none Brief History - From Admission Patient is a 61-year-old male with history of hypertension, obesity, diabetes type 2, obesity, chronic lymphedema of the left lower extremity who presented to the emergency room complaining of chest pain. This is the third episode of chest pain he had for the past 3 months. 2 episodes in the past associated with road biking after 15-20 minutes associated with diaphoresis, chest tightness and he would stop biking and this would be relieved. He denies any orthopnea. However this time-third episode patient had just started biking when this chest pain occurred with diaphoresis and patient promptly came in here. EKG dpne shows no acute STTW changes On further history, 2-1/2 months ago was admitted to the [facility] and had a cardiac imaging study - scan was suggestive of blockage. Was seen by a craft coordinator - Dr. Pabon and was offered a cardiac catheterization however patient refused. he wanted a second opinion with a more senior craft coordinator. He was referred to [facility] and has yet to set up an OP appointment. He has history of diabetes type 2, left leg DVT, pulmonary embolism status post IVC filter in 2011. He just recently set up with a primary care physician and was started on medications which he hasn't had a chance to fill yet. Patient currently is on no medications at all. He was here 04/12 for chest pain and signed out AMA. Patient now is chest pain-free. EKG shows NSR no acute STTW changes Admitted for further evaluation and management CBC/BMP: 05/02/16 0349 05/04/16 0708 Significant Findings Laboratory Tests Test 05/04/16 07:08 Estimat Glomerular Filtration 77 ML/MIN (>89) Rate Random Glucose 173 MG/DL (74-106) Hemoglobin A1c 11.8 % (4.3-6.0) Calcium Level 8.4 MG/DL (8.5-10.1) Aspartate Amino Transf 10 U/L (15-37) (AST/SGOT) Albumin 3.2 GM/DL (3.4-5.0) Triglycerides Level 190 MG/DL (42-150) HDL Cholesterol 29.2 MG/DL (40.0-60.0) Imaging Last Impressions Chest X-Ray 05/02/16 0118 Signed Impressions: Service Date/Time: Monday, May 02, 2016 01:52 - CONCLUSION: 1. No acute cardiopulmonary disease. Kenny Ferro MD PE at Discharge awake and alert, oriented x 3 anicteric lungs clear regular rhythm abdomen soft, nontender extremities - chronic left leg edema- swelling improved foot- dry wounds, erythema improved Pt update on day of discharge awake and alert, VS stable no complains of chest pain, no nausea or vomiting discuss with him DC plans and ff ups- with staff nurse at bedside Hospital Course 61-year-old male presenting with CAD- Stable Angina with positive myocardial perfusion study Twelve-lead EKG with no acute ST-T wave changes, normal sinus rhythm. Chest x-ray unremarkable. troponins negative seen by Cardiology- plan for [facility]- patient refused Dr. Galeana. insisisting on Dr. Whaley aspirin. Nitrol ointment 1 in q 6 Lopressor 12.5 mg by mouth every 8 statins. lipid panel good History of left leg DVT, pulmonary embolism, status post IVC filter in 2011 By history -he completed 6 months of Coumadin therapy. Last doppler US 04/12 negative for DVT History of chronic left leg lymphedema. Left foot superficial wounds- chronic with mild cellulitis- erythema much improved leg elevation Mycolog cream bid.. Keflex 500 mg po q8 instructed to ff up Lymphedema clinic- per patient cost is an issue- instruct patient to d/w PCP for OP referral Low back pain- chronic- no radiculopathy prn pain meds History of diabetes type 2. A1C 11.2 Check sliding scales insulins with Regular Insulin coverage. just started 70 /30 bid 15 units - increase to 18 units blood sugar low 200s diet counselling Obesity patient very motivated with weight loss Lovenox - DVT prophylaxis DC today FF up with his PCP Ff up with [facility] - call for appt in am d/w CM- patient has [employer] d/w wound care team- wounds improved DC today with OP ff up with PCP and ff up with Cardiology- gave office # to set up with- [facility] went back to patient's room with staff nurse to go over prescriptions- patient not in the room- left without prescriptions and discharge instructions instruct nurse to document 05/04 d/w Dr. Galeana was in other hospital and signed out refused cath at [facility] Condition on Discharge: Stable Discharge Disposition: Discharge Home Discharge Time: <= 30 minutes Discharge Instructions DIET: Follow Instructions for: Heart Healthy Diet, Diabetic Diet Speech Therapy-Diet Recommends: Regular Activities you can perform: Weight Bearing as Jyoti Activities to Avoid: Concussion Sports, Contact Sports, Strenuous Activity Follow up Referrals: Cardiology - 05/06/16 with [facility] PCP Follow-up - 05/07/16 with PCP New Medications: Aspirin (Aspirin EC) 81 Mg Tabdr 81 MG PO DAILY Chest Pain #30 TAB Brandon Pascual MD May 05, 2016 15:56
[2016-05-05] MEDS ORDERED: INSULIN HUMAN NPH/R 70/30 1,000 UNITS/10 ML VIAL SQ SCH (17:00)
[2016-05-05] MEDS ORDERED: ENOXAPARIN SODIUM 40 MG/0.4 ML SYRINGE SQ SCH (18:00)
== END 2016-05-05 16:14 | disposition left against medical advice (07) ==
LOC: NEPC 00:24 → NEDA 04:25 → NEDH 06:22 → NEPHCDU 10:06 → HCIN 05-03 15:24
PROVIDERS: ADMIT Internal Medicine; ATTEND Internal Medicine
DX: R07.9 Chest pain, unspecified (principal); R61 Generalized hyperhidrosis; E11.65 Type 2 diabetes mellitus with hyperglycemia; Z86.718 Personal history of other venous thrombosis and embolism; I89.0 Lymphedema, not elsewhere classified; I10 Essential (primary) hypertension; R94.39 Abnormal result of other cardiovascular function study; Z86.711 Personal history of pulmonary embolism; E66.01 Morbid (severe) obesity due to excess calories; S91.302A Unspecified open wound, left foot, initial encounter; I25.118 Atherosclerotic heart disease of native coronary artery with other forms of angina pectoris; Z79.01 Long term (current) use of anticoagulants; E78.5 Hyperlipidemia, unspecified; Z79.4 Long term (current) use of insulin; Z91.19 Patient's noncompliance with other medical treatment and regimen; L03.116 Cellulitis of left lower limb; I45.10 Unspecified right bundle-branch block
CPT/HCPCS: 71010; 80048; 80053; 80061; 80076; 82550; 82552; 82948; 83036; 83605; 83735; 83880; 84484; 85025; 85610; 85730; 87040; 93005; 99285; G0378; J1650; J1815; J7030

== ENCOUNTER 2017-05-02 09:41 | Emergency (ER) | payer OTHER ==
[~2017-05-02] VITALS: Ht 170.2 cm; Wt 118.0 kg
[~2017-05-02 09:41] MED LIST changes: +ASPI81TA23 PO; -BACT800T5 PO
[2017-05-02 09:45] VITALS: BP 151/90; PULSE 95; RESP 18; TEMP 97.6; O2SAT 98
[2017-05-02] MEDS ORDERED: INSULIN HUMAN REGULAR 1,000 UNITS/10 ML VIAL SQ ONE ×2 (10:00→10:15)
[2017-05-02] MEDS ORDERED: CLINDAMYCIN PHOS 300 MG/2 ML VIAL IM ONE (10:00)
[2017-05-02] MEDS ORDERED: BACT800T5 PO (10:09)
--- NOTE | 2017-05-02 10:09 | PD ---
HPI Chief Complaint: Diabetic Time Seen by Provider: 09:50 Travel History International Travel<30 days: No Contact w/Intl Traveler<30days: No Traveled to known affect area: No History of Present Illness HPI Patient is noncompliant with his medications and has run out of his diabetic medications for at least a year. He states that his usual blood sugar levels have been around 180s or so when he used to have his test strips. Patient states that he just now got a new primary care, however he does not recall the name of his physician or group. Denies any alleviating or aggravating factors. Comes in complaining of a redness to his skin over his left lower extremity, the redness is over the anterior distal end of his left leg not involving his foot, able to move his joint passively without pain Allergies: Denies Past medical history significant for lymphedema, diabetes. PFSH Past Medical History Diabetes: Yes Deep Vein Thrombosis: Yes Immunizations Current: Yes Past Surgical History Cholecystectomy: Yes Oral Surgery: Yes Social History Alcohol Use: Yes (VERY RARE) Tobacco Use: No Substance Use: No Allergies-Medications (Allergen,Severity, Reaction): Coded Allergies: No Known Allergies (Verified , 05/02/16) Reported Meds & Prescriptions Reported Meds & Active Scripts Active Bactrim DS (Sulfamethoxazole-Trimethoprim) 800-160 Mg Tab 1 Tab PO BID Aspirin EC (Aspirin) 81 Mg Tabdr 81 Mg PO DAILY Review of Systems Except as stated in HPI: all other systems reviewed are Neg General / Constitutional: No: Fever Eyes: No: Visual changes HENT: No: Headaches Cardiovascular: No: Chest Pain or Discomfort Respiratory: No: Shortness of Breath Gastrointestinal: No: Abdominal Pain Genitourinary: No: Dysuria Musculoskeletal: No: Pain Skin: Positive Lesions Neurologic: No: Weakness Psychiatric: No: Depression Endocrine: No: Polydipsia Hematologic/Lymphatic: No: Easy Bruising Physical Exam Narrative GENERAL: SKIN: Warm and dry. Left lower extremity, distal, has an area of erythema warmth but without fluctuance, also no streaking, no lymphadenopathy, however he is left lower extremity is also edematous and enlarged secondary to his baseline lymphedema which is worse on his left lower extremity than he is a right lower extremity. HEAD: Atraumatic. Normocephalic. EYES: Pupils equal and round. No scleral icterus. No injection or drainage. ENT: No nasal bleeding or discharge. Mucous membranes pink and moist. NECK: Trachea midline. No JVD. CARDIOVASCULAR: Regular rate and rhythm. RESPIRATORY: No accessory muscle use. Clear to auscultation. Breath sounds equal bilaterally. GASTROINTESTINAL: Abdomen soft, non-tender, nondistended. MUSCULOSKELETAL: Extremities without clubbing, cyanosis, or edema. No obvious deformities. NEUROLOGICAL: Awake and alert. No obvious cranial nerve deficits. Motor grossly within normal limits. Five out of 5 muscle strength in the arms and legs. Normal speech. PSYCHIATRIC: Appropriate mood and affect; insight and judgment normal. Data Data Last Documented VS Vital Signs Date Time Temp Pulse Resp B/P (MAP) Pulse Ox O2 Delivery O2 Flow Rate FiO2 05/02/17 10:10 98.0 80 18 131/78 (95) 98 Room Air Orders Orders Wound Culture And Gram Stain (05/02/17 09:56) Blood Glucose (05/02/17 09:56) Clindamycin Inj (Cleocin Inj) (05/02/17 10:00) Insulin Human Regular Inj (Novolin R Inj (05/02/17 10:00) Insulin Human Regular Inj (Novolin R Inj (05/02/17 10:15) Insulin Human Regular Inj (Novolin R Inj (05/02/17 10:15) Clindamycin 600 Mg/Ns Premix (Cleocin 60 (05/02/17 10:15) Blood Glucose (05/02/17 11:22) MDM Medical Decision Making Medical Screen Exam Complete: Yes Emergency Medical Condition: Yes Medical Record Reviewed: Yes Diagnosis Primary Impression: Cellulitis of leg, left Patient Instructions: Cellulitis (ED), General Instructions Scripts Metformin (Metformin) 1,000 Mg Tab 1000 MG PO DAILY for Blood Sugar Management, #30 TAB 0 Refills With a meal Prov: Dario Del Cid MD 05/02/17 Sulfamethoxazole-Trimethoprim (Bactrim DS) 800-160 Mg Tab 1 TAB PO BID for Infection, #20 TAB 0 Refills Prov: Dario Del Cid MD 05/02/17 Disposition: 01 DISCHARGE HOME Condition: Stable Dario Del Cid MD May 02, 2017 10:09
[2017-05-02 10:10] VITALS: BP 131/78; PULSE 80; RESP 18; TEMP 98; O2SAT 98
[2017-05-02] MEDS ORDERED: INSULIN HUMAN REGULAR 1,000 UNITS/10 ML VIAL IV PUSH ONE (10:15)
[2017-05-02] MEDS ORDERED: CLINDAMYCIN 600 MG/NS PREMIX 50 ML IV ONE (10:15)
[2017-05-02] MEDS ORDERED: CLINDAMYCIN INJ 600 MG in SODIUM CHLORIDE 0.9% INJ 100 ML IV ONE (10:15)
[2017-05-02] MEDS ORDERED: METF1000 PO (12:09)
[2017-05-02] MEDS ORDERED: MEDICAL COMPRES1 MI3 (12:38)
== END 2017-05-02 12:32 | disposition home or self-care (01) ==
LOC: NEPE 09:41
DX: L03.116 Cellulitis of left lower limb (principal); E11.9 Type 2 diabetes mellitus without complications
CPT/HCPCS: 86403; 87070; 87186; 96372; 96374; 96375; 99284; J1815; 87205

== ENCOUNTER 2017-06-03 18:20 | Emergency (ER) | payer OTHER ==
[~2017-06-03] VITALS: Ht 170.2 cm; Wt 120.0 kg
[2017-06-03 18:20] VITALS: BP 148/88; PULSE 92; RESP 16; TEMP 98.3; O2SAT 98
[~2017-06-03 18:20] MED LIST changes: +BACT800T5 PO; +MEDICAL COMPRES1 MI3; +METF1000 PO
[2017-06-03 19:11] VITALS: BP 150/72; PULSE 82; RESP 20; O2SAT 98
--- NOTE | 2017-06-03 19:36 | PD ---
HPI Chief Complaint: Skin Problem Time Seen by Provider: 19:05 Travel History International Travel<30 days: No Contact w/Intl Traveler<30days: No Traveled to known affect area: No History of Present Illness HPI 62-year-old white male presents emergency department with complaints of increasing redness to his left lower leg. Patient has a history of edema. He had been in the ER little over 1 week ago with similar complaint. He was treated for possible cellulitis. He states that the injection of clindamycin and Bactrim DS did not help his symptoms. The patient states that he feels actually his area of redness is getting worse. He has purchased an over-the- counter cream which she has been applying to the area. He denies any fever chills. He states his skin does breakdown and weep at times. He has had chronic lymphedema and has a prescription for compression stockings but has not gotten it filled yet. He alleges that his physician no longer participates with his insurance. He has not contacted a new provider yet. Symptoms are moderate. Worsened by lymphedema. No alleviating factors. PFSH Past Medical History Diabetes: Yes Patient Takes Glucophage: Yes Deep Vein Thrombosis: Yes Immunizations Current: Yes Tetanus Vaccination: > 5 Years Past Surgical History Cholecystectomy: Yes Oral Surgery: Yes Social History Alcohol Use: Yes (VERY RARE) Tobacco Use: No Substance Use: No Allergies-Medications (Allergen,Severity, Reaction): Coded Allergies: No Known Allergies (Verified , 05/02/16) Reported Meds & Prescriptions Reported Meds & Active Scripts Active Medical Compression Elastic Socks 1 Mis Mis Ea .XX DIRECTED Metformin (Metformin HCl) 1,000 Mg Tab 1,000 Mg PO DAILY With a meal Aspirin EC (Aspirin) 81 Mg Tabdr 81 Mg PO DAILY Review of Systems General / Constitutional: No: Fever Eyes: No: Visual changes HENT: No: Headaches Cardiovascular: No: Chest Pain or Discomfort Respiratory: No: Shortness of Breath Gastrointestinal: No: Abdominal Pain Genitourinary: No: Dysuria Musculoskeletal: Positive: Arthralgias, Limited ROM, Edema, No: Weakness, Pain Skin: Positive Rash Neurologic: No: Weakness Psychiatric: No: Depression Endocrine: No: Polydipsia Hematologic/Lymphatic: No: Easy Bruising Physical Exam Narrative GENERAL: This is a well-nourished, well-developed patient, in no apparent distress. SKIN: Patient has an area of erythema from the distal third of the lower leg around the ankle and forefoot of the left leg. The patient has large lymphedema bilaterally. The left is much greater than the right. The area of erythema blanches. It is not warm, tender. He has a small amount of skin breakdown. It does not appear to be grossly infected. Patient has intact sensation with good pulses. HEAD: Atraumatic. Normocephalic. EYES: PERRL, EOMI, no discharge or injection. No scleral icterus. EARS: Clear NOSE: Nasal turbinates appear normal. THROAT: Mucosa pink and moist. Airway patent. NECK: Trachea midline. supple, moves head freely. LUNGS: Clear to auscultation. CV: Regular in rhythm. 1-2 murmur left sternal border. ABDOMEN: Soft nontender. EXT: No clubbing cyanosis. Chronic lymphedema. See skin evaluation above. Data Data Last Documented VS Vital Signs Date Time Temp Pulse Resp B/P (MAP) Pulse Ox O2 Delivery O2 Flow Rate FiO2 06/03/17 19:11 82 20 150/72 (98) 98 Room Air 06/03/17 18:20 98.3 Orders Orders Iv Access Insert/Monitor (06/03/17 19:10) Complete Blood Count With Diff (06/03/17 19:10) Basic Metabolic Panel (Bmp) (06/03/17 19:10) Insulin Human Regular Inj (Novolin R Inj (06/03/17 21:00) Sodium Chlorid 0.9% 500 Ml Inj (Ns 500 M (06/03/17 21:00) Labs Laboratory Tests Test 06/03/17 19:42 White Blood Count 7.2 TH/MM3 Red Blood Count 5.52 MIL/MM3 Hemoglobin 16.5 GM/DL Hematocrit 48.0 % Mean Corpuscular Volume 87.1 FL Mean Corpuscular Hemoglobin 30.0 PG Mean Corpuscular Hemoglobin Concent 34.4 % Red Cell Distribution Width 13.8 % Platelet Count 184 TH/MM3 Mean Platelet Volume 9.0 FL Neutrophils (%) (Auto) 67.0 % Lymphocytes (%) (Auto) 19.3 % Monocytes (%) (Auto) 8.0 % Eosinophils (%) (Auto) 5.0 % Basophils (%) (Auto) 0.7 % Neutrophils # (Auto) 4.8 TH/MM3 Lymphocytes # (Auto) 1.4 TH/MM3 Monocytes # (Auto) 0.6 TH/MM3 Eosinophils # (Auto) 0.4 TH/MM3 Basophils # (Auto) 0.1 TH/MM3 CBC Comment DIFF FINAL Differential Comment Blood Urea Nitrogen 19 MG/DL Creatinine 1.30 MG/DL Random Glucose 398 MG/DL Calcium Level 9.5 MG/DL Sodium Level 137 MEQ/L Potassium Level 4.8 MEQ/L Chloride Level 100 MEQ/L Carbon Dioxide Level 29.0 MEQ/L Anion Gap 8 MEQ/L Estimat Glomerular Filtration Rate 56 ML/MIN MDM Medical Decision Making Medical Screen Exam Complete: Yes Emergency Medical Condition: Yes Medical Record Reviewed: Yes Interpretation(s) CBC & BMP Diagram 06/03/17 19:42 Calcium Level 9.5 Differential Diagnosis MDM: High Differential diagnoses: Abscess, folliculitis, cellulitis, lymphangitis, abrasion, contact dermatitis, chronic lymphedema Narrative Course IV access obtained. CBC and chemistry ordered. I discussed the case with casey saw operator who states that there is nothing they can offer the patient at this time. He is advised to call his [employer] insurance to get another local physician and clinics to follow-up for wound care. Patient's blood sugars 398. He is given 8 units of regular insulin IV and 500 cc of normal saline. Diagnosis Primary Impression: chronic venous stasis Additional Impressions: Lymphedema Hyperglycemia Patient Instructions: General Instructions Additional Instructions: Rest. Elevation. Stop using topical creams on your legs other than plain Vaseline. Call to get a clinic [employer] as well as a primary care doctor and wound care physician. Monitor your sugars closely. Properly dose your insulin. Return to the ER if any problems. Med/Other Pt SpecificInfo: Wound Care Disposition: 01 DISCHARGE HOME Condition: Stable Julio Mills Jun 03, 2017 19:36
[2017-06-03 20:25] LABS: AUTOMATED NEUTROPHIL # 4.8 TH/MM3 (1.8-7.7); BASOPHIL # 0.1 TH/MM3 (0-0.2); BASOPHIL % 0.7 % (0.0-2.0); EOSINOPHIL # 0.4 TH/MM3 (0-0.4); HEMOGLOBIN 16.5 GM/DL (13.0-17.0); LYMPH % 19.3 % (9.0-44.0); LYMPHOCYTE # 1.4 TH/MM3 (1.0-4.8); MEAN CELL VOLUME 87.1 FL (80.0-100.0); MEAN CORPUSCULAR HGB CONC 34.4 % (32.0-36.0); MONOCYTE # 0.6 TH/MM3 (0-0.9); PLATELET COUNT 184 TH/MM3 (150-450); RED BLOOD COUNT 5.52 MIL/MM3 (4.50-5.90); RED CELL DISTRIBUTION WIDTH 13.8 % (11.6-17.2); WHITE BLOOD COUNT 7.2 TH/MM3 (4.0-11.0)
[2017-06-03 20:38] LABS: CALCIUM 9.5 MG/DL (8.5-10.1); CREATININE 1.3 MG/DL (0.60-1.30)
[2017-06-03] MEDS ORDERED: SODIUM CHLORID 0.9% 500 ML INJ 500 ML IV ONE (21:00)
[2017-06-03] MEDS ORDERED: INSULIN HUMAN REGULAR 1,000 UNITS/10 ML VIAL IV PUSH ONE (21:00)
== END 2017-06-03 22:59 | disposition home or self-care (01) ==
LOC: NEPD 18:20
DX: I87.8 Other specified disorders of veins (principal); I89.0 Lymphedema, not elsewhere classified; E11.65 Type 2 diabetes mellitus with hyperglycemia; Z79.84 Long term (current) use of oral hypoglycemic drugs
CPT/HCPCS: 80048; 85025; 96361; 96374; 99284; J1815; J7040